=== PATIENT | male | born 1995 | race Caucasian/White ===

== ENCOUNTER 2017-06-07 18:30 | Emergency (ER) | payer OTHER ==
[~2017-06-07] VITALS: Ht 182.9 cm; Wt 79.4 kg
[2017-06-07] MEDS ORDERED: NOHOMEMEDICATIONS (19:01)
[2017-06-07] MEDS ORDERED: BACTRIM DS TAB1 EACH PO (19:28)
== END 2017-06-07 20:12 | disposition home or self-care (01) ==
LOC: ER 18:30
DX: K65.1 Peritoneal abscess (principal); L03.90 Cellulitis, unspecified; F17.210 Nicotine dependence, cigarettes, uncomplicated